=== PATIENT | female | born 1955 | race Caucasian/White ===

== ENCOUNTER → 2019-12-03 17:36 | Outpatient (CLI) | payer OTHER, SELFPAY | PROVIDERS: Visit Provider Physician Assistant | DX: R30.0 Dysuria (principal) | CPT/HCPCS: 87077; 87086; 87147 ==

== ENCOUNTER 2024-01-17 15:48 | Emergency (ER) | payer MEDICARE, SELFPAY ==
[2024-01-17 16:28] VITALS: PULSE 63; RESP 14; TEMP 37; O2SAT 98; BMI 21.1
--- NOTE | 2024-01-17 17:50 | ED.ANIMALBIT ---
HPI - Animal Bite <Robert Valdovinos PA-C - Last Filed: 01/18/24 14:37> General Chief Complaint: Animal Bite Stated Complaint: needs rabies shot Time Seen by Provider: 01/17/24 17:30 Source: patient Mode of arrival: Ambulatory History of Present Illness HPI narrative: 69-year-old female presents to the ED for the 5th and last of the rabies vaccine series. Patient was bitten by a dog in [place], was started on a rabies vaccine series. Patient is also receiving some immuno suppressant medications, for which patient was recommended to take 5 total vaccine doses. Patient states that she has had no adverse effects from the prior doses. Related Data Allergies Allergy/AdvReac Type Severity Reaction Status Date / Time doxycycline Allergy Intermediate Rash Verified 01/14/24 12:13 Review of Systems <Robert Valdovinos PA-C - Last Filed: 01/18/24 14:37> Constitutional Constitutional: Denies chills, Denies fatigue, Denies fever(s), Denies frequent falls, Denies lethargy and Denies weakness Eyes Eyes: Denies change in vision, Denies eye discharge, Denies irritation and Denies loss of vision ENT Ears, Nose, Mouth, and Throat: Denies change in voice, Denies dizziness, Denies neck pain, Denies sore throat and Denies throat swelling Cardiovascular Cardiovascular: Denies chest pain, Denies irregular heart rhythm, Denies lightheadedness, Denies palpitations, Denies dyspnea, Denies dyspnea on exertion and Denies orthopnea Respiratory Respiratory: Denies cough, Denies dyspnea, Denies dyspnea on exertion and Denies wheezing Gastrointestinal Gastrointestinal: Denies abdominal pain, Denies change in bowel habits, Denies diarrhea, Denies nausea and Denies vomiting Musculoskeletal Musculoskeletal: Denies neck pain and Denies numbness Integumentary/Breasts Skin/Breast: Denies pruritus, Denies erythema, Denies rash and Denies wounds Neurologic Neurologic: Denies behavioral changes, Denies confusion, Denies dizziness, Denies frequent falls, Denies loss of vision, Denies numbness and Denies weakness Psychiatric Psychiatric: Denies anxiety, Denies behavioral changes, Denies confusion, Denies depression, Denies homicidal ideation and Denies suicidal ideation Endocrine Endocrine: Denies fatigue, Denies flushing and Denies palpitations Hematologic/Lymphatic Hematologic/Lymphatic: Denies easy bruising Allergic/Immunologic Allergic/Immunologic: Denies urticaria, Denies throat swelling and Denies wheezing Patient History <Robert Valdovinos PA-C - Last Filed: 01/18/24 14:37> Social History Smoking Status: Never smoker Smoking Status: Never smoker alcohol intake frequency: 0-2 drinks per day Substance Use Type: does not use Exam <Robert Valdovinos PA-C - Last Filed: 01/18/24 14:37> Narrative Exam Narrative: Const General:?cooperative, healthy appearing and comfortable [facility] Head:?normal to inspection Ears:?hearing grossly normal bilaterally Nose:?external nose normal Face and sinus:?normal facial exam and sinuses nontender Mouth:?oral mucosae normal Throat:?posterior oropharynx normal Eyes General:?appearance normal, both eyes and all related structures Neck Neck:?normal visual inspection and no lymphadenopathy noted Resp Effort & Inspection:?normal respiratory effort Auscultation:?clear to auscultation bilaterally Cardio Rate:?regular rate Rhythm:?regular rhythm Neuro General:?patient alert, patient awake and patient oriented x3 Initial Vital Signs Initial Vital Signs: Vital Signs Temperature 98.6 F 01/17/24 16:28 Pulse Rate 63 01/17/24 16:28 Respiratory Rate 14 01/17/24 16:28 Pulse Oximetry 98 01/17/24 16:28 Oxygen Delivery Method Room Air 01/17/24 16:28 <Beatriz Villaseñor DO - Last Filed: 01/24/24 07:13> Initial Vital Signs Initial Vital Signs: Vital Signs Temperature 98.6 F 01/17/24 16:28 Pulse Rate 63 01/17/24 16:28 Respiratory Rate 14 01/17/24 16:28 Pulse Oximetry 98 01/17/24 16:28 Oxygen Delivery Method Room Air 01/17/24 16:28 Course <Robert Valdovinos PA-C - Last Filed: 01/18/24 14:37> Orders Ordered: Discontinued Medications Rabies Vaccine (Rabies Vaccine (Rabavert) 2.5 Units Syringe) 2.5 units IM .ONCE ONE Stop: 01/17/24 17:56 Last Admin: 01/17/24 18:04 Dose: 2.5 units Documented By: ES Vital Signs Vital signs: Vital Signs - 8 hr 01/17/24 16:28 Temperature 98.6 F Pulse Rate 63 Respiratory Rate 14 Pulse Oximetry 98 Oxygen Delivery Method Room Air <Beatriz Villaseñor DO - Last Filed: 01/24/24 07:13> Orders Ordered: Discontinued Medications Rabies Vaccine (Rabies Vaccine (Rabavert) 2.5 Units Syringe) 2.5 units IM .ONCE ONE Stop: 01/17/24 17:56 Last Admin: 01/17/24 18:04 Dose: 2.5 units Documented By: ES Vital Signs Vital signs: Vital Signs - 8 hr 01/17/24 16:28 Temperature 98.6 F Pulse Rate 63 Respiratory Rate 14 Pulse Oximetry 98 Oxygen Delivery Method Room Air MDM - Animal Bite <Robert Valdovinos PA-C - Last Filed: 01/18/24 14:37> MDM Narrative Medical decision making narrative: 69-year-old female presents to the ED for the 5th and last of the rabies vaccine series. Reassuring to note that patient has had no adverse effects. Patient also noted that she was getting the series mainly for her peace of mind, and that it was presented to her that she did not need the vaccine for a dog bite. Patient was administered the last dose today in the ED. ED return precautions discussed with patient. Patient verbalized understanding. Medical records reviewed: Yes Discharge Plan Departure Patient Disposition: Home Clinical Impression: Rabies, need for prophylactic vaccination against Instructions: DI for Rabies Vaccine Activity Restrictions/Additional Instructions: You were seen in the ED today for your 5th and last dose of the rabies vaccine. Please return to the ED if you note any adverse effects. Referrals: Brittany Teresa MD [Primary Care Provider] - Stand Alone Forms: Patient Portal/API ED Sign-out <Beatriz Villaseñor DO - Last Filed: 01/24/24 07:13> Cosign ED Attending Cosignature Attestation: I was immediately available in the department for consultation.
[2024-01-17] MEDS: RABIES VACCINE (RABAVERT) 2.5 UNITS SYRINGE IM (18:04)
== END 2024-01-17 18:11 | disposition home or self-care (01) ==
PROVIDERS: Emergency Provider Student in an Organized Health Care Education/Training Program; PCP Student in an Organized Health Care Education/Training Program
DX: Z20.3 Contact with and (suspected) exposure to rabies (principal); Z23 Encounter for immunization
CPT/HCPCS: 90471; 90675; 99283

== ENCOUNTER → 2024-01-20 12:45 | Outpatient (CLI) | payer MEDICARE, SELFPAY ==
[2024-01-20 13:56] LABS: Appearance Urine UA CLEAR; Bilirubin Urine UA NEGATIVE (NEGATIVE); Color Urine UA YELLOW; Glucose Urine UA NEGATIVE (Negative); Ketones Urine UA NEGATIVE (NEGATIVE); Leukocyte Esterase Urine UA NEGATIVE (NEGATIVE); Nitrite Urine UA NEGATIVE (Negative); Occult Blood Urine UA NEGATIVE (Negative); Protein Urine UA NEGATIVE (Negative); Urobilinogen Urine UA 0.2 E.U./dL (0.2)
[2024-01-20 14:44] LABS: pH Urine UA 6.5 (4.5-8.0)
[2024-01-20 14:49] LABS: Bacteria Urine None Seen; Culture Indicated Urine Cult Not Indicated; RBC Urine None Seen (0-5/HPF); Squamous Epithelial Cell Urine None Seen (0-5/HPF); Urine Volume 10mL (spun); WBC Urine None Seen (0-5/HPF)
== END ==
PROVIDERS: PCP Student in an Organized Health Care Education/Training Program; Referring Provider Student in an Organized Health Care Education/Training Program; Visit Provider Student in an Organized Health Care Education/Training Program
DX: R39.9 Unspecified symptoms and signs involving the genitourinary system (principal)
CPT/HCPCS: 81001; 87086

== ENCOUNTER → 2024-02-21 12:22 | Outpatient (CLI) | payer MEDICARE, SELFPAY ==
[2024-02-21 13:14] LABS: Appearance Urine UA Clear; Color Urine UA ORANGE
[2024-02-21 13:15] LABS: Urine Volume 10mL (spun)
[2024-02-21 13:19] LABS: Bacteria Urine None Seen; Culture Indicated Urine Cult Not Indicated; RBC Urine None Seen (0-5/HPF); Squamous Epithelial Cell Urine None Seen (0-5/HPF); WBC Urine None Seen (0-5/HPF)
== END ==
PROVIDERS: PCP Student in an Organized Health Care Education/Training Program; Referring Provider Student in an Organized Health Care Education/Training Program; Visit Provider Student in an Organized Health Care Education/Training Program
DX: N39.0 Urinary tract infection, site not specified (principal); R30.0 Dysuria
CPT/HCPCS: 81001

== ENCOUNTER → 2024-04-05 13:37 | Outpatient (CLI) | payer MEDICARE, SELFPAY ==
[2024-04-05 14:41] LABS: Appearance Urine UA Clear; Color Urine UA ORANGE
[2024-04-05 14:49] LABS: Urine Volume 10mL (spun)
[2024-04-05 14:53] LABS: Bacteria Urine Few (2-10); Culture Indicated Urine Specimen Cultured; RBC Urine 0-1/HPF (0-5/HPF); Squamous Epithelial Cell Urine 5-10 /HPF (0-5/HPF); WBC Urine 5-10/HPF (0-5/HPF)
[2024-04-05 19:48] LABS: Influenza A - CEPHEID Flu A NEGATIVE (NEGATIVE); Influenza B - CEPHEID Flu B NEGATIVE (NEGATIVE); Respiratory Syncytial Virus Negative (Negative)
[2024-04-05 19:51] LABS: COVID-19 CEPHEID 4-PLEX PCR Negative (Negative)
== END ==
PROVIDERS: Student in an Organized Health Care Education/Training Program; PCP Student in an Organized Health Care Education/Training Program; Referring Provider Student in an Organized Health Care Education/Training Program; Visit Provider Student in an Organized Health Care Education/Training Program
DX: R05.1 Acute cough (principal); R30.0 Dysuria
CPT/HCPCS: 0241U; 81001; 87086

== ENCOUNTER → 2024-04-05 18:48 | Outpatient (CLI) | payer MEDICARE, SELFPAY ==
--- NOTE | 2024-04-05 18:57 | DI.RAD.S_ITS ---
PROCEDURE: XR CHEST 2V INDICATIONS: fatigue, congestion 10 D; mile rhonchi Left TECHNIQUE: 2 views of the chest were acquired. COMPARISON: None. FINDINGS: Surgical changes and devices: None. Lungs and pleura: Mild peribronchial thickening. No dense airspace disease. No pleural effusion. Possible mild middle lobe opacity. Mediastinum: Normal heart size Bones and chest wall: Degenerative changes. IMPRESSION: Possible mild middle lobe opacity may represent atelectasis or early airspace disease. Superimposed peribronchial thickening possibly atypical infection or bronchitis. Dictated by: Qamar Sanabria M.D. on 04/05/2024 at 19:48 Approved by: Qamar Sanabria M.D. on 04/05/2024 at 19:49
== END ==
LOC: DI 18:53
PROVIDERS: PCP Student in an Organized Health Care Education/Training Program; Referring Provider Student in an Organized Health Care Education/Training Program; Visit Provider Student in an Organized Health Care Education/Training Program
DX: J98.8 Other specified respiratory disorders (principal); R53.83 Other fatigue; R05.1 Acute cough; R30.0 Dysuria
CPT/HCPCS: 0241U; 71046; 81001; 87077; 87086

== ENCOUNTER → 2024-04-21 14:11 | Outpatient (CLI) | payer MEDICARE, SELFPAY ==
--- NOTE | 2024-04-21 14:13 | DI.RAD.S_ITS ---
PROCEDURE: XR CHEST 2V INDICATIONS: POSSIBLE PNEUMONIA TECHNIQUE: 2 views of the chest were acquired. COMPARISON: [facility], CR, XR CHEST 2V, 04/05/2024, 19:08. FINDINGS: Surgical changes and devices: None. Lungs and pleura: Right middle lobe airspace opacity decreased compared to prior examination. Possible new airspace opacity involving the mid left lung.. No pleural effusions or pneumothorax. Mediastinum: Mediastinal contours are normal. Heart size is normal. Bones and chest wall: No suspicious bony abnormalities. Soft tissues appear unremarkable. IMPRESSION: 1. Resolving right middle lobe airspace opacity and possible new airspace opacity involving the mid left lung versus artifact. Recommend clinical correlation and follow-up. Dictated by: Ross EID Interpreted: Vera Morris MD on 04/22/2024 at 7:59 Approved by: Vera Morris M.D. on 04/23/2024 at 16:21
== END ==
PROVIDERS: PCP Student in an Organized Health Care Education/Training Program; Referring Provider Family Medicine; Visit Provider Family Medicine
DX: R91.8 Other nonspecific abnormal finding of lung field (principal)
CPT/HCPCS: 71046

== ENCOUNTER → 2024-06-08 10:18 | Outpatient (CLI) | payer MEDICARE, SELFPAY ==
[2024-06-08 10:35] LABS: Appearance Urine UA CLEAR; Bilirubin Urine UA NEGATIVE (NEGATIVE); Color Urine UA YELLOW; Glucose Urine UA NEGATIVE (Negative); Ketones Urine UA NEGATIVE (NEGATIVE); Leukocyte Esterase Urine UA 1+ (NEGATIVE); Nitrite Urine UA POSITIVE (Negative); Occult Blood Urine UA NEGATIVE (Negative); Protein Urine UA NEGATIVE (Negative); Specific Gravity Urine UA 1.015 (1.000-1.035); Urobilinogen Urine UA 0.2 E.U./dL (0.2)
[2024-06-08 10:57] LABS: Bacteria Urine Moderate (10-30); Culture Indicated Urine Specimen Cultured; RBC Urine None Seen (0-5/HPF); Squamous Epithelial Cell Urine 5-10 /HPF (0-5/HPF); Urine Volume 10mL (spun); WBC Urine 5-10/HPF (0-5/HPF)
== END ==
LOC: LAB 10:19
PROVIDERS: PCP Student in an Organized Health Care Education/Training Program; Referring Provider Student in an Organized Health Care Education/Training Program; Visit Provider Student in an Organized Health Care Education/Training Program
DX: R30.0 Dysuria (principal)
CPT/HCPCS: 81001; 87077; 87086